=== PATIENT | female | born 1940 | race African-American/Black ===

== ENCOUNTER 2019-12-13 17:51 | Observation (INO) ==
[2019-12-13] MEDS ORDERED: ONDANSETRON 4 MG/2 ML VIAL IV STA (18:23)
[2019-12-13] MEDS ORDERED: CLINDAMYCIN INJ 600 MG in PREMIX 1 EACH IV STA (18:23)
[2019-12-13] MEDS ORDERED: DIPH/TET/ACEL PERT BOOSTER VACCINE 0.5 ML VIAL IM ONE (18:23)
[2019-12-13] MEDS ORDERED: LACTATED RINGERS 500 ML IV STA (18:23)
[2019-12-13] MEDS ORDERED: LIDOCAINE 1%/EPI INJ 20 ML VIAL ONE (19:34)
[2019-12-13 20:03] LABS: Basophils % 0.1 % (0.0-0.8); Hematocrit 36.2 VOL% (35.7-47.0); Hemoglobin 11.8 GM/DL (12.0-16.0); Immature Granulocytes % 0.4 %; Immature Granulocytes Absolute 0.06 #; Lymphocytes % 7.2 % (21.3-54.2); Mean Corpuscular HGB Conc 32.6 GM/DL (32-36); Mean Corpuscular Volume 90.5 FL (87-102); Mean Platelet Volume 9.8 FL (9.6-12.0); Monocytes % 7.3 % (1.7-12.7); Platelet Count 151 T/CUMM (130-400); Red Cell Distribution Width 15.8 % (9.3-17.3); White Blood Count 13.6 T/CUMM (4-12)
[2019-12-13 20:12] LABS: Bilirubin,Urine Negative (Negative); Blood, Urine Small mg/dL (Negative); Glucose,Urine (UA) Negative (Negative); Ketones,Urine Negative (Negative); Mucus,Urine Occasional /LPF (Occasional); Nitrite,Urine Negative (Negative); Protein,Urine Negative; RBC,Urine 2 /HPF (0-4); Squamous Epithelial Cell,Urine Occasional /HPF (0-10); Urine Appearance CLEAR (Clear); Urine Color Straw (Yellow); Urine Specific Gravity 1.024 (1.001-1.035); Urine Urobilinogen < 2.0 EU/DL (0.2-1.0); WBC,Urine 4 /HPF (0-6)
[2019-12-13 20:13] LABS: PT Patient Result 11.2 SECS (9.8-11.9)
[2019-12-13 20:15] LABS: Barbiturates Screen,Urine Positive (Negative); Benzodiazepines Screen,Urine Negative (Negative); Cannabinoid Screen,Urine Negative (Negative); Opiate Screen,Urine Negative (Negative); Phencyclidine Screen,Urine Negative (Negative)
[2019-12-13] MEDS ORDERED: ONDANSETRON 4 MG/2 ML VIAL IV ONE (20:22)
[2019-12-13] MEDS ORDERED: MORPHINE 4 MG/1 ML VIAL IV STA (20:55)
[2019-12-13 21:09] LABS: Alanine Aminotransferase 33 U/L (13-56); Albumin 3.1 G/DL (3.4-5.0); Alkaline Phosphatase 71 U/L (45-117); Amylase 79 U/L (25-115); Aspartate Amino Transferase 50 U/L (0-37); Blood Urea Nitrogen 16 MG/DL (7-18); Calcium 8.7 MG/DL (8.5-10.1); Estimated Glom Filtration Rate 85 ML/MIN; Glucose 152 MG/DL (74-106); Osmolality,Calculated 284.3 MOS/KG (273-304); Total Protein 6.1 G/DL (6.4-8.3)
[2019-12-13] MEDS ORDERED: ACETAMINOPHEN 325 MG TABLET PO PRN (21:23)
[2019-12-13] MEDS ORDERED: ONDANSETRON 4 MG/2 ML VIAL IV PRN (21:23)
[2019-12-13] MEDS ORDERED: MORPHINE 4 MG/1 ML VIAL IV PRN (21:23)
[2019-12-13] MEDS: SODIUM CHLORIDE 0.9% 1,000 ML IV SCH (23:51)
[2019-12-14] MEDS: CLINDAMYCIN INJ 600 MG in PREMIX 1 EACH IV SCH ×3 (03:51→18:35)
[2019-12-14 05:06] LABS: Basophils % 0.1 % (0.0-0.8); Hematocrit 34.7 VOL% (35.7-47.0); Hemoglobin 11.2 GM/DL (12.0-16.0); Immature Granulocytes % 0.2 %; Immature Granulocytes Absolute 0.02 #; Lymphocytes # 0.6 10*3/uL (1.4-4.0); Lymphocytes % 6.2 % (21.3-54.2); Mean Corpuscular HGB Conc 32.3 GM/DL (32-36); Mean Corpuscular Volume 90.1 FL (87-102); Mean Platelet Volume 10.4 FL (9.6-12.0); Monocytes % 5.1 % (1.7-12.7); Neutrophils % 88.4 % (38.7-73.9); Platelet Count 147 T/CUMM (130-400); Red Blood Count 3.85 MC/CUMM (3.8-5.5); Red Cell Distribution Width 15.9 % (9.3-17.3); White Blood Count 8.9 T/CUMM (4-12)
[2019-12-14 05:27] LABS: Albumin 2.9 G/DL (3.4-5.0); Bilirubin,Total 0.5 MG/DL (0.2-1.0); Calcium 8.4 MG/DL (8.5-10.1); Osmolality,Calculated 285.1 MOS/KG (273-304); Total Protein 6.2 G/DL (6.4-8.3)
[2019-12-14] MEDS: MELOXICAM 7.5 MG TABLET PO SCH ×2 (08:57→09:31)
[2019-12-14] MEDS: CITALOPRAM 20 MG TABLET PO SCH ×2 (08:57→09:31)
[2019-12-14] MEDS: PANTOPRAZOLE 40 MG TABLET PO SCH ×2 (08:57→09:31)
[2019-12-14] MEDS ORDERED: HYDROmorphone 2 MG/1 ML VIAL IV PRN (10:12)
[2019-12-14] MEDS: SODIUM CHLORIDE 0.9% 1,000 ML IV SCH (11:40)
[2019-12-14] MEDS ORDERED: CHLORHEXIDINE 4% SOLN 118 ML BOTTLE TOP ONE (15:53)
[2019-12-14] MEDS: CHLORHEXIDINE 0.12% ORAL RINSE 60 ML BOTTLE SWISH/SPIT SCH ×2 (16:15→20:50)
[2019-12-15] MEDS: CLINDAMYCIN INJ 600 MG in PREMIX 1 EACH IV SCH ×2 (03:41→10:45)
[2019-12-15] MEDS: SODIUM CHLORIDE 0.9% 1,000 ML IV SCH (03:45)
[2019-12-15] MEDS: PANTOPRAZOLE 40 MG TABLET PO SCH (08:10)
[2019-12-15] MEDS: CHLORHEXIDINE 0.12% ORAL RINSE 60 ML BOTTLE SWISH/SPIT SCH (08:10)
[2019-12-15] MEDS: MELOXICAM 7.5 MG TABLET PO SCH (08:10)
[2019-12-15] MEDS: CITALOPRAM 20 MG TABLET PO SCH (08:10)
[2019-12-15 11:38] VITALS: BP 135/67
== END 2019-12-15 13:45 | disposition home health service (06) ==
LOC: EDBD → EDUNIT# → N.EDINP 17:51 → N.ED 17:51 → N.EDINP 22:42 → N.3E 23:11
PROVIDERS: ADMIT Student in an Organized Health Care Education/Training Program; ATTEND Student in an Organized Health Care Education/Training Program